=== PATIENT | male | born 1940 | race Caucasian/White ===

== ENCOUNTER 2016-08-19 09:31 | Emergency (ER) | payer OTHER ==
[~2016-08-19] VITALS: Ht 177.8 cm; Wt 117.5 kg
[2016-08-19] MEDS ORDERED: ESSENTIAL DAIL1 EACH PO (09:38)
[2016-08-19] MEDS ORDERED: CADUET 10/101 TABLET PO (09:38)
[2016-08-19] MEDS ORDERED: LO-DOSE ASPIRIN81 M2 PO (09:38)
[2016-08-19 11:23] LABS: HEMATOCRIT 42.4 % (38.0-50.0); MCH 30.6 PG (29.0-34.0); MCHC 33.7 G/DL (30.0-36.0); MCV 90.6 FL (86-99); MEAN PLAT.VOLUME 10.2 uM^3 (9.0-12.4); PLATELET COUNT 172 K/uL (156-360); RBC DIS.WIDTH-CV 13.5 % (11.8-14.6); RBC DIS.WIDTH-SD 44.7 % (39-53); RED BLOOD COUNT 4.68 M/uL (4.00-5.50); WHITE BLOOD COUNT 6.5 K/uL (4.1-10.2)
[2016-08-19] MEDS ORDERED: AUGMENTIN875 MG PO (14:04)
[2016-08-19] MEDS ORDERED: NAPROXEN500 MG PO (14:04)
[2016-08-19] MEDS ORDERED: NORCO 5/3251 TABLET PO (14:04)
[2016-08-19 14:42] VITALS: BP 145/91
== END 2016-08-19 14:44 | disposition home or self-care (01) ==
LOC: EME 09:31
PROVIDERS: Physician Assistant
DX: S51.851A Open bite of right forearm, initial encounter (principal); S80.11XA Contusion of right lower leg, initial encounter; S71.151A Open bite, right thigh, initial encounter; W54.0XXA Bitten by dog, initial encounter; Y92.009 Unspecified place in unspecified non-institutional (private) residence as the place of occurrence of the external cause; Y99.0 Civilian activity done for income or pay; Z23 Encounter for immunization; I10 Essential (primary) hypertension; Z85.46 Personal history of malignant neoplasm of prostate; Z87.891 Personal history of nicotine dependence
CPT/HCPCS: 73090; 73590; 85027; 99281; 99285; J0690; J3010; J7050; J7120